=== PATIENT | female | born 1940 | race Hispanic/Latino ===

== ENCOUNTER 2020-10-25 07:20 | Day surgery (SDC) | payer MEDICARE, OTHER ==
[2020-10-25] MEDS ORDERED: ASPIRIN EC 325 MG TAB PO ONE (08:09)
[2020-10-25 08:40] LABS: Hematocrit 33.6 % (30.3-42.9); Hemoglobin 11.6 gm/dl (10.1-14.3); Mean Corpuscular HGB Conc 35 % (30-34); Mean Corpuscular Volume 97 fl (79-97); Platelet Count 193 K/mm3 (140-440); Red Blood Count 3.46 M/mm3 (3.65-5.03); Red Cell Distribution Width 14.5 % (13.2-15.2)
[2020-10-25 08:49] LABS: INR 1.12 (0.87-1.13)
[2020-10-25 08:50] LABS: Partial Thromboplastin Time 34.6 Sec. (24.2-36.6)
[2020-10-25 08:54] LABS: BUN/Creatinine Ratio 12; Blood Urea Nitrogen 11 mg/dL (7-17); Calcium 9.6 mg/dL (8.4-10.2); Hemolysis Index 7
[2020-10-25] MEDS ORDERED: SODIUM CHLORIDE 0.9% 500 ML 500 ML IV SCH (09:00)
[2020-10-25] MEDS ORDERED: HEPARIN 10,000 UNITS/10 ML VIAL ONE (09:14)
[2020-10-25] MEDS ORDERED: HEPARIN/NS 5000 UNIT/500ML 1,000 ML IR ONE (09:14)
[2020-10-25] MEDS ORDERED: VERAPAMIL 5 MG/2 ML INJ ONE (09:14)
[2020-10-25] MEDS: fentaNYL 100 MCG/2 ML INJ ONE ×2 (10:08→10:11)
[2020-10-25] MEDS: MIDAZOLAM 2 MG/2 ML INJ ONE ×2 (10:08→10:11)
[2020-10-25] MEDS: LIDOCAINE (2%) 20 MG/1 ML VIAL 20 ML MDV INFILTRATI ONE ×2 (10:08→10:13)
[2020-10-25] MEDS ORDERED: METOPROLOL TARTRATE 5 MG/5 ML INJ IV ONE (10:12)
--- NOTE | 2020-10-25 10:58 | Short Stay Summary ---
Short Stay Documentation Date of service: 10/25/20 - History H&P: obtained from office - Allergies and Medications Current Medications: Allergies Penicillins Adverse Reaction (Verified 10/25/20 08:09) Nausea Home Medications Medication Instructions Recorded Confirmed Last Taken Type Adult Probiotic 1 cap PO DAILY 10/25/20 10/25/20 10/24/20 History 1 Aspirin [Adult Aspirin] 81 mg PO DAILY 10/25/20 10/25/20 10/24/20 History 81 mg Calcium Carbonate [Calcium] 1,200 mg PO DAILY 10/25/20 10/25/20 10/24/20 History 1200 mg Ezetimibe [Zetia] 10 mg PO DAILY 10/25/20 10/25/20 10/24/20 History 10 mg Gluc James/Chondro James A/Vit C/Mn 1 cap PO DAILY 10/25/20 10/25/20 10/24/20 History [Glucosamine-Chondroitin Cap] 1 Losartan [Cozaar] 50 mg PO QDAY 10/25/20 10/25/20 10/24/20 History 50 mg Melatonin [Melatonin 3MG TAB] 1.5 mg PO QHS 10/25/20 10/25/20 10/24/20 History 1.5mg Pitavastatin Calcium [LiVALO] 2 mg PO DAILY 10/25/20 10/25/20 10/24/20 History 2 mg Preservision Areds Tablet 1 tab PO BID 10/25/20 10/25/20 10/24/20 History 1 carvediloL [Coreg] 12.5 mg PO BID 10/25/20 10/25/20 10/24/20 History 12.5mg Active Medications Sodium Chloride (Nacl 0.9% 500 Ml) 500 mls @ 50 mls/hr IV DIRECT BRENDA Stop: 10/25/20 18:59 - Brief post op/procedure progress note Date of procedure: 10/25/20 Pre-op diagnosis: sob Post-op diagnosis: same Procedure: see report Anesthesia: local Estimated blood loss: minimal Pathology: none - Disposition Condition at discharge: Good Disposition: [id number] TO HOME OR SELFCARE - Discharge Diagnoses (1) Aortic stenosis, moderate Status: Chronic (2) LBBB (left bundle branch block) Status: Chronic (3) Hypertension Status: Chronic Qualifiers: Hypertension type: essential hypertension Qualified Code(s): I10 - Essential (primary) hypertension (4) Hyperlipemia, mixed Status: Chronic (5) SOB (shortness of breath) on exertion Status: Acute Short Stay Discharge Plan Activity: advance as tolerated Diet: regular, low fat, low cholesterol Wound: keep clean and dry Follow up with: DEONTE SULLIVAN FNP [Primary Care Provider] - 7 Days
[2020-10-25] MEDS ORDERED: HYDROcodone/ACETAMINOPHEN 5-325 MG TAB PO PRN (11:00)
[2020-10-25] MEDS ORDERED: traMADol 50 MG TAB PO PRN (11:00)
--- NOTE | 2020-10-25 14:02 | Cardiac Catherization Report ---
CLINICAL INFORMATION: This is an 80-year-old female with hypertension, hyperlipidemia, carotid disease, left bundle branch block with moderate severe aortic stenosis, here for shortness of breath with minimal exertion. Procedure was done with moderate sedation started at 10:11 and finished at 10:30, 90 minutes of moderate sedation. Procedure was performed by the right common femoral artery, sterile technique, local anesthesia, 6-Kazakh groin sheath inserted. Left system engaged with JL4 catheter with following findings: Left main is large and patent, bifurcates into large LAD that is patent. Diagonal 1 is a medium caliber vessel, patent, moderate tortuosity. Circumflex is a large caliber vessel, bifurcates into large caliber. OM1 is patent. OM2 is medium caliber and patent. RCA engaged with JR4 catheter, is a large dominant vessel, PDA with moderate tortuosity. PDA, PLV are small to medium caliber and patent with moderate tortuosity. I was able to cross the aortic valve and LV was 166 and LVEDP of 23 mmHg. Aortic is 133/66, mean gradient 29 mmHg, [id number] was 33 mmHg. A pullback gradient was done. Catheters were removed over a guidewire. A 6-Kazakh groin sheath was discontinued. Manual pressure held. No hematoma, no bleeding. SUMMARY: 1. Left main patent, LAD patent, circumflex patent, OM1, OM2 patent, RCA patent. 2. Normal LV function. 3. [id number] aortic stenosis with a mean gradient of 29 mmHg. The patient will be referred to Pulmonary for shortness of breath as the patient's shortness of breath is out of proportion to aortic stenosis. Discussed in detail with the patient and patient's family. JOB# [id number] KIMBERLEE/BREE
[2020-10-25 15:03] VITALS: BP 135/76
== END 2020-10-25 07:21 | disposition home or self-care (01) ==
LOC: CATHLABREC 07:20
PROVIDERS: ATTEND Internal Medicine
DX: I35.0 Nonrheumatic aortic (valve) stenosis (principal); I10 Essential (primary) hypertension; I25.10 Atherosclerotic heart disease of native coronary artery without angina pectoris; E78.2 Mixed hyperlipidemia; I44.7 Left bundle-branch block, unspecified; G47.30 Sleep apnea, unspecified; F41.9 Anxiety disorder, unspecified; R06.02 Shortness of breath; Z88.0 Allergy status to penicillin; Z79.899 Other long term (current) drug therapy; Z79.82 Long term (current) use of aspirin
CPT/HCPCS: 36415; 80048; 85027; 85610; 85730; 93005; 93458; 99156; C1769; C1894; J1644; J2250; J3010; J7040; Q9967